=== PATIENT | female | born 1980 | race Caucasian/White ===

== ENCOUNTER 2016-11-12 10:35 | Emergency (ER) | payer OTHER ==
--- NOTE | 2016-11-12 12:06 | XRAY Preliminary Report ---
Exam: XR Foot 3 View RT Impression: Oblique fracture of the fifth proximal phalanx, as described above. [facility] SITE ID: [id number]
--- NOTE | 2016-11-12 12:08 | XRAY Report ---
EXAM: RIGHT FOOT RADIOGRAPHY EXAM DATE: 11/12/2016 11:35 AM. CLINICAL HISTORY: Rt 5th toe pain. COMPARISON: None. TECHNIQUE: 3 views. FINDINGS: There is an oblique fracture of the fifth proximal phalanx with moderate angulation and displacement. The joint spaces are well preserved. No radiopaque foreign body is seen. Impression: Oblique fracture of the fifth proximal phalanx, as described above. [facility] Referring Provider Line: [phone] SITE ID: [id number]
--- NOTE | 2016-11-12 12:40 | ED Physician Documentation ---
PD HPI LOWER EXT INJURY - Stated complaint Stated Complaint: R PINKY TOE INJURY - Chief complaint Chief Complaint: Ext Problem - History obtained from History obtained from: Patient - History of Present Illness PD HPI LOW EXT INJURY LOCATION: Right, Toe (5th) Type of injury: Other (hit toe on couch) Where injury occurred: Home Timing - onset: Yesterday Timing - duration: Days (1) Timing - details: Abrupt onset Pain level max: 8 Pain level now: 4 Improved by: Rest Worsened by: Moving, Palpating Associated symptoms: Swelling, Discolored (ecchymosis). No: Weakness, Numbness , Tingling Contributing factors: No: Anticoagulated Similar symptoms before: Has not had sx before Recently seen: Not recently seen Review of Systems : denies: Now EGA Neurologic: denies: Focal weakness, Numbness PD PAST MEDICAL HISTORY - Past Medical History Past Medical History: Yes Psych: Depression - Past Surgical History Past Surgical History: No - Present Medications Home Medications: Ambulatory Orders Medication Instructions Recorded Confirmed Norethindrone [Jolivette] 0.35 mg PO DAILY 11/12/16 11/12/16 Paroxetine HCl [Paxil] 20 mg PO DAILY 11/12/16 11/12/16 - Allergies Allergies/Adverse Reactions: Allergies Allergy/AdvReac Type Severity Reaction Status Date / Time Sulfa (Sulfonamide AdvReac Hallucinati Verified 11/12/16 10:53 Antibiotics) ons - Social History Does the pt smoke?: No Smoking Status: Never smoker Does the pt drink ETOH?: No Does the pt have substance abuse?: No - Immunizations Immunizations are current?: Yes - POLST Patient has POLST: No PD ED PE NORMAL - Vitals Vital signs reviewed: Yes - General General: Alert and oriented X 3, No acute distress - Derm Derm: Warm and dry - Extremities Extremities: Other (R 5th toe, ecchymosis and swelling to the toe. NVI. ) - Neuro Neuro: Alert and oriented X 3 - Psych Psych: Normal mood, Normal affect Results - Vitals Vitals: Vital Signs - 24 hr 11/12/16 11/12/16 10:51 12:51 Temperature 36.4 C L 36.1 C L Heart Rate 76 73 Respiratory 16 18 Rate Blood Pressure 112/73 123/82 H O2 Saturation 96 99 Oxygen O2 Source Room air - Rads (name of study) R foot xray Radiology: Prelim report reviewed, EMP read contemporaneously, See rad report ( Oblique fracture of the fifth proximal phalanx, as described above. ) PD MEDICAL DECISION MAKING - ED course Complexity details: reviewed results, re-evaluated patient, considered differential, d/w patient ED course: Patient is a 36-year-old female with an oblique fracture of the fifth proximal phalanx on the right foot. Placed in the postoperative shoe and katy taped for comfort. Will prescribe NSAIDs for home. Patient counseled regarding signs and symptoms for which I believe and urgent re-evaluation would be necessary. Patient with good understanding of and agreement to plan and is comfortable going home at this time This document was made in part using voice recognition software. While efforts are made to proofread this document, sound alike and grammatical errors may occur. Departure - Departure Disposition: 01 Home, Self Care Clinical Impression: Toe fracture, right Qualifiers: Encounter type: initial encounter Toe: unspecified toe Fracture type: closed Fracture alignment: displaced Qualified Code(s): S92.911A - Unspecified fracture of right toe(s), initial encounter for closed fracture Condition: Good Instructions: ED Fx Toe Closed Follow-Up: your,doctor in 1 week [Other] Comments: You may use Motrin or Tylenol at home for pain. Return if you worsen. Wear the postoperative shoe whenever standing or walking for at least the next week Discharge Date/Time: 11/12/16 12:51
[2016-11-12 12:52] VITALS: BP 123/82
== END 2016-11-12 12:51 | disposition home or self-care (01) ==
LOC: ED 10:35
DX: S92.511A Displaced fracture of proximal phalanx of right lesser toe(s), initial encounter for closed fracture (principal); W22.03XA Walked into furniture, initial encounter; Y92.009 Unspecified place in unspecified non-institutional (private) residence as the place of occurrence of the external cause
CPT/HCPCS: 99283

== ENCOUNTER 2017-02-02 09:33 | Outpatient (CLI) | payer OTHER ==
[2017-02-03 12:11] LABS: TEST RESULT REPORT
== END 2017-02-02 09:34 | disposition home or self-care (01) ==
LOC: LAB.WCP 09:33
PROVIDERS: ATTEND Family Medicine
DX: R19.7 Diarrhea, unspecified (principal)
CPT/HCPCS: 81599; 83630; 87045; 87046; 87177; 87209; 87329; 87493

== ENCOUNTER 2017-03-05 12:08 | Outpatient (CLI) | payer OTHER | END 2017-03-05 12:09 | disposition home or self-care (01) | LOC: LAB.WCP 12:08 | PROVIDERS: ATTEND Family Medicine | DX: R19.7 Diarrhea, unspecified (principal) | CPT/HCPCS: 87045; 87046 ==

== ENCOUNTER 2017-08-07 07:38 | Outpatient (CLI) | payer OTHER ==
[2017-08-07 08:03] LABS: BASOPHILS # (AUTO) 0.1 10^3/uL (0.0-0.1); BASOPHILS % (AUTO) 0.8 %; EOSINOPHILS # (AUTO) 0.2 10^3/uL (0.0-0.7); EOSINOPHILS % (AUTO) 3.1 %; LYMPHOCYTES # (AUTO) 2.2 10^3/uL (1.5-3.5); LYMPHOCYTES % (AUTO) 30.7 %; MEAN CORPUSCULAR HEMOGLOBIN 30.9 pg (27.0-31.0); MEAN CORPUSCULAR HGB CONC 34.7 g/dL (32.0-36.0); MEAN PLATELET VOLUME 7.9 fL (7.9-10.8); MONOCYTES # (AUTO) 0.5 10^3/uL (0.0-1.0); MONOCYTES % (AUTO) 6.4 %; NEUTROPHILS # (AUTO) 4.2 10^3/uL (1.5-6.6); PLT - PLATELET COUNT 235 10^3/uL (130-450); RED BLOOD COUNT 4.53 10^6/uL (4.20-5.40); RED CELL DISTRIBUTION WIDTH 12.5 % (12.0-15.0); WHITE BLOOD COUNT 7.2 x10^3/uL (4.8-10.8)
[2017-08-07 08:22] LABS: ALBUMIN 3.9 g/dL (3.2-5.5); ALBUMIN/GLOBULIN RATIO 1.2 (1.0-2.2); ALKALINE PHOSPHATASE 60 IU/L (42-121); ALT ALANINE AMINOTRANSFERASE 26 IU/L (10-60); AST ASPARTATE AMINOTRANSFERASE 26 IU/L (10-42); BILIRUBIN,TOTAL 0.5 mg/dL (0.2-1.0); BUN - BLOOD UREA NITROGEN 17 mg/dL (6-20); CALCIUM 8.8 mg/dL (8.5-10.3); CARBON DIOXIDE - CO2 25 mmol/L (21-32); CHLORIDE 105 mmol/L (101-111); CHOL/HDL RATIO 3.2 (<4.4); CHOLESTEROL 137 mg/dL; CREATININE 0.7 mg/dL (0.4-1.0); GFR - MDRD 95 (>89); GLUCOSE 100 mg/dL (70-100); HB2 TOTAL 15.3 g/dL; HDL CHOLESTEROL 43 mg/dL; HEMOGLOBIN A1C 0.53 g/dL; HEMOGLOBIN A1C % 5.3 % (4.6-6.2); LDL CHOLESTEROL,CALCULATED 60 mg/dL; LDL/HDL RATIO 1.4 (<4.4); SODIUM 139 mmol/L (135-145); TOTAL PROTEIN 7.1 g/dL (6.7-8.2); VLDL CHOLESTEROL 34 mg/dL
== END 2017-08-07 07:39 | disposition home or self-care (01) ==
LOC: LAB 07:38
PROVIDERS: ATTEND Family Medicine
DX: Z00.00 Encounter for general adult medical examination without abnormal findings (principal)
CPT/HCPCS: 36415; 80053; 80061; 83036; 83721; 84443; 85025

== ENCOUNTER 2017-11-24 08:00 | Outpatient (CLI) | payer OTHER | END 2017-11-24 08:01 | disposition home or self-care (01) | LOC: LAB.R 08:00 | PROVIDERS: ATTEND Family Medicine | DX: R19.7 Diarrhea, unspecified (principal); A04.72 Enterocolitis due to Clostridium difficile, not specified as recurrent | CPT/HCPCS: 81599; 83630; 87045; 87046; 87177; 87209; 87329; 87493; 89055 ==

== ENCOUNTER 2018-02-26 14:43 | Emergency (ER) | payer OTHER ==
[2018-02-26 14:55] VITALS: BP 144/90
[2018-02-26] MEDS ORDERED: IBUPROFEN 800 MG TABLET PO STA (14:56)
--- NOTE | 2018-02-26 15:06 | ED Physician Documentation ---
PD HPI LOWER EXT INJURY - Stated complaint Stated Complaint: R FOOT INJ - Chief complaint Chief Complaint: Ext Problem - History obtained from History obtained from: Patient - History of Present Illness PD HPI LOW EXT INJURY LOCATION: Right (37-year-old woman with no possibility of slipped and fell in her garage just prior to arrival and hit her foot on something and has moderate pain in the area of the medial distal foot. No other injuries.) Review of Systems Constitutional: reports: Reviewed and negative Cardiac: reports: Reviewed and negative Respiratory: reports: Reviewed and negative PD PAST MEDICAL HISTORY - Past Medical History Past Medical History: Yes Psych: Depression - Past Surgical History Past Surgical History: No - Present Medications Home Medications: Ambulatory Orders Medication Instructions Recorded Confirmed Ethinyl Estradiol/Drospirenone 1 each PO 02/26/18 02/26/18 [Neena 28 Tablet] FLUoxetine [PROzac] 20 mg PO DAILY 02/26/18 02/26/18 buPROPion [Wellbutrin Xl] 150 mg PO DAILY 02/26/18 02/26/18 - Allergies Allergies/Adverse Reactions: Allergies Allergy/AdvReac Type Severity Reaction Status Date / Time Sulfa (Sulfonamide AdvReac Hallucinati Verified 02/26/18 14:55 Antibiotics) ons - Social History Does the pt smoke?: No Smoking Status: Never smoker Does the pt drink ETOH?: No Does the pt have substance abuse?: No - Immunizations Immunizations are current?: Yes - POLST Patient has POLST: No PD ED PE NORMAL - Vitals Vital signs reviewed: Yes - General General: Alert and oriented X 3, No acute distress - Extremities Extremities: Other (Right foot is tender in the area of the first MTP and first proximal phalanx without distal neurovascular compromise or limited range of motion. No deformity or visible injury.) - Neuro Neuro: Alert and oriented X 3, Normal speech Results - Vitals Vitals: Vital Signs - 24 hr 02/26/18 14:51 Temperature 36.9 C Heart Rate 97 Respiratory 18 Rate Blood Pressure 144/90 H O2 Saturation 100 Oxygen O2 Source Room air - Rads (name of study) R foot 3v Radiology: EMP read contemporaneously (Comminuted proximal phalanx fracture of the first digit) PD MEDICAL DECISION MAKING - ED course ED course: First and second toes were katy taped by the [facility] and she was put into a fracture shoe. She declined prescription pain medication. Departure - Departure Disposition: 01 Home, Self Care Clinical Impression: Toe fracture, right Qualifiers: Encounter type: initial encounter Toe: great toe Fracture type: closed Phalanx: proximal Fracture alignment: nondisplaced Qualified Code(s): S92.414A - Nondisplaced fracture of proximal phalanx of right great toe, initial encounter for closed fracture Condition: Fair Record reviewed to determine appropriate education?: Yes Instructions: ED Fx Toe Closed Follow-Up: [facility] [Provider Group] - Within 1 week Comments: Tylenol or ibuprofen as needed for pain. Keep it akty taped to the second toe as shown. Follow-up with the orthopedic surgeons within the week, call Wednesday for an appointment. Your blood pressure was elevated today on check into the emergency department. This does not mean that you have hypertension, it is a common phenomenon to come to the emergency department and have elevated blood pressure. I recommend that you see your primary care physician within the week to have it rechecked when you are feeling better.
--- NOTE | 2018-02-26 15:36 | XRAY Report ---
Reason: foot inj, near 1st MTP Procedure Date: 02/26/2018 Accession Number: [id number] / [id number] Procedure: XR - Foot 3 View RT CPT Code: FULL RESULT: EXAM: RIGHT FOOT RADIOGRAPHY EXAM DATE: 02/26/2018 03:19 PM. CLINICAL HISTORY: Foot inj, near 1st MTP. Pain COMPARISON: None. TECHNIQUE: 3 views. FINDINGS: Bones: Comminuted fracture first digit proximal phalanx. Plantar heel spur. Achilles tendon heel spur. Joints: Normal. No subluxations. Soft Tissues: Soft tissue swelling. IMPRESSION: Comminuted fracture first digit proximal phalanx [facility]
== END 2018-02-26 15:36 | disposition home or self-care (01) ==
LOC: ED 14:43
DX: S92.414A Nondisplaced fracture of proximal phalanx of right great toe, initial encounter for closed fracture (principal); W01.198A Fall on same level from slipping, tripping and stumbling with subsequent striking against other object, initial encounter; Y92.008 Other place in unspecified non-institutional (private) residence as the place of occurrence of the external cause; R03.0 Elevated blood-pressure reading, without diagnosis of hypertension
CPT/HCPCS: 73630; 99283; A9270

== ENCOUNTER 2018-06-08 13:45 | Outpatient (CLI) | payer OTHER | END 2018-06-08 23:59 | disposition home or self-care (01) | LOC: LAB.WCP 13:45 | PROVIDERS: ATTEND Physician Assistant | DX: R19.7 Diarrhea, unspecified (principal) | CPT/HCPCS: 83630; 87045; 87046; 87177; 87209; 87493 ==

== ENCOUNTER 2018-11-14 | Outpatient (CLI) | payer OTHER | END 2018-11-14 23:59 | disposition home or self-care (01) | DX: N39.41 Urge incontinence (principal) ==

== ENCOUNTER 2018-12-07 10:34 | Outpatient (CLI) | payer OTHER ==
--- NOTE | 2018-12-07 16:09 | XRAY Report ---
Reason: RIGHT KNEE PAIN Procedure Date: 12/07/2018 Accession Number: [id number] / [id number] Procedure: WCP - Knee 3 View RT CPT Code: FULL RESULT: EXAM: RIGHT KNEE RADIOGRAPHY EXAM DATE: 12/07/2018 10:34 AM. CLINICAL HISTORY: RIGHT KNEE PAIN. COMPARISON: KNEE 2 VIEW RT 12/27/2017 9:35 AM. TECHNIQUE: 3 views. FINDINGS: Bones: Normal. No fractures or bone lesions. Joints: Stable mild degenerative changes, including posterior osteophytic spurring of the patella and mild joint space narrowing of the patellofemoral articulation and the knee joint. Soft Tissues: Normal. No soft tissue swelling. IMPRESSION: Mild degenerative changes. Stable exam [facility]
== END 2018-12-07 23:59 | disposition home or self-care (01) ==
LOC: DI.WCP 10:34 → EDSTATUS 13:22 → DI.WCP 23:59
PROVIDERS: ATTEND Family Medicine
DX: M17.11 Unilateral primary osteoarthritis, right knee (principal)

== ENCOUNTER 2019-10-20 13:00 | Outpatient (CLI) | payer OTHER | END 2019-10-20 23:59 | disposition home or self-care (01) | LOC: LAB.WCP 13:00 | PROVIDERS: ATTEND Physician Assistant | DX: Z00.00 Encounter for general adult medical examination without abnormal findings (principal) | CPT/HCPCS: 36415; 84443 ==

== ENCOUNTER 2020-03-22 15:02 | Outpatient (CLI) | payer OTHER ==
[2020-03-22 15:43] LABS: THYROID STIMULATING HORMONE 1.48 uIU/mL (0.34-5.60)
[2020-03-22 15:46] LABS: FREE T4 (FREE THYROXINE) 0.79 ng/dL (0.58-1.64)
== END 2020-03-22 15:03 | disposition home or self-care (01) ==
LOC: LAB 15:02
PROVIDERS: ATTEND Nurse Practitioner Obstetrics & Gynecology
DX: L60.0 Ingrowing nail (principal); R53.83 Other fatigue; L65.9 Nonscarring hair loss, unspecified
CPT/HCPCS: 36415; 84403; 84439; 84443

== ENCOUNTER 2020-06-03 14:02 | Emergency (ER) | payer OTHER ==
[2020-06-03 14:21] VITALS: BP 139/78
[2020-06-03] MEDS ORDERED: TETANUS/DIPHTHERIA/PERTUSSIS 0.5 ML SYRINGE IM ONE (14:51)
--- NOTE | 2020-06-03 15:29 | ED Physician Documentation ---
History of Present Illness - Stated complaint Stated Complaint: HEAD INJURY - Chief complaint Chief Complaint: Trauma Hd/Nk - Additonal information Additional information: 40-year-old female presents emergency department for a laceration to the right side of her head that she sustained prior to arrival when she was walking and did not notice an open window. She hit the corner of the window and has a very small 0.5 cm laceration that she had difficulty getting to stop bleeding. She is not anticoagulated. No loss of consciousness. Review of Systems Constitutional: reports: Reviewed and negative Eyes: reports: Reviewed and negative Ears: reports: Reviewed and negative Nose: reports: Reviewed and negative Throat: reports: Reviewed and negative Cardiac: reports: Reviewed and negative Respiratory: reports: Reviewed and negative GI: reports: Reviewed and negative : reports: Reviewed and negative Skin: reports: Laceration (s) (right parietal scalp) Musculoskeletal: reports: Reviewed and negative Neurologic: reports: Head injury. denies: Generalized weakness, Focal weakness, Numbness, Syncope, Seizure, Confused, Altered mental status, Headache, LOC PD PAST MEDICAL HISTORY - Past Medical History Cardiovascular: None Respiratory: None Neuro: None Endocrine/Autoimmune: None GI: C.difficile Psych: Depression - Past Surgical History Past Surgical History: No - Present Medications Home Medications: Ambulatory Orders Medication Instructions Recorded Confirmed FLUoxetine [PROzac] 40 mg PO DAILY 02/26/18 02/26/18 buPROPion [Wellbutrin Xl] 150 mg PO DAILY 02/26/18 02/26/18 Multivitamin [Multivitamins] 11/06/18 Nitrofurantoin Monohyd/M-Cryst 100 mg PO BID #10 capsule 11/06/18 [Macrobid 100 mg Capsule] Phenazopyridine HCl [Pyridium] 200 mg PO TID PRN #6 tablet 11/06/18 Verapamil [Calan] 80 mg PO BID 11/06/18 11/06/18 - Allergies Allergies/Adverse Reactions: Allergies Allergy/AdvReac Type Severity Reaction Status Date / Time Sulfa (Sulfonamide AdvReac Hallucinati Verified 06/03/20 14:18 Antibiotics) ons - Social History Does the pt smoke?: No Smoking Status: Never smoker Does the pt drink ETOH?: No Does the pt have substance abuse?: No - Immunizations Immunizations are current?: Yes - POLST Patient has POLST: No PD ED PE EXPANDED - General General: Alert, No acute distress, Well developed/nourished - HEENT HEENT: PERRL, EOMI - Neck Neck: Supple w/out meningeal sx. No: Adenopathy - Cardiac Cardiac: Regular Rate, Regular Rhythm - Derm Derm: Laceration(s) (0.5 cm laceration right parietal scalp no active bleeding at present.) - Neuro Neuro: Alert and Oriented X 3, CNII-XII intact, Normal gait, Normal speech - GCS Eye Opening: Spontaneous Motor: Obeys Commands Verbal: Oriented Total: 15 Results - Vitals Vitals: Vital Signs - 24 hr 06/03/20 14:18 Temperature 36.7 C Heart Rate 79 Respiratory 16 Rate Blood Pressure 139/78 H O2 Saturation 98 Oxygen O2 Source Room air Procedures - Laceration (location) right scalp Length in cm: 0.5 Wound type: Linear Neurovascular status: Sensory intact, Vascular intact Wound preparation: Irrigated copiously NS Skin layer closure: [place] (1 staple placed) Other: Patient tolerated well, No complications, Tetanus UTD PD MEDICAL DECISION MAKING - ED course Complexity details: re-evaluated patient, d/w patient ED course: 40-year-old female presented to the emergency department for right parietal scalp laceration sustained prior to arrival. Though a small laceration it took quite some time for it to stop bleeding. Therefore we did place 1 staple in the wound which adequately approximated the wound and controlled the bleed. Tetanus is up-to-date. Patient was advised on return precautions for concerns of infection. Staple removal in 5 to 7 days. Departure - Departure Disposition: 01 Home, Self Care Clinical Impression: Scalp laceration Qualifiers: Encounter type: initial encounter Qualified Code(s): S01.01XA - Laceration without foreign body of scalp, initial encounter Condition: Stable Record reviewed to determine appropriate education?: Yes Instructions: ED Laceration Scalp Stitch Or Stap Comments: Lorena the laceration of your scalp was very small but because it was on your head it bled quite a bit. In order to help control the bleeding we did place 1 small staple. This should be removed in 5 to 7 days. You may wash your hair normally. Use caution when using a comb or brush as it may catch the staple. I do recommend that you place antibiotic ointment over the laceration. Return to the emergency department if you have fevers increased pain suddenly severe swelling or any concerns of infection surrounding the laceration.
== END 2020-06-03 15:38 | disposition home or self-care (01) ==
LOC: ED 14:02
DX: S01.01XA Laceration without foreign body of scalp, initial encounter (principal); W22.09XA Striking against other stationary object, initial encounter; Y93.01 Activity, walking, marching and hiking
CPT/HCPCS: 12001; 99281; 99282